=== PATIENT | female | born 2000 | race Caucasian/White ===

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

== ENCOUNTER 2024-06-01 23:42 | Emergency (ER) | payer OTHER ==
[~2024-06-01] VITALS: Ht 157.4 cm; Wt 68.0 kg
== END 2024-06-02 02:22 | disposition home or self-care (01) ==
LOC: ED 23:42
DX: S09.8XXA Other specified injuries of head, initial encounter (principal); F17.200 Nicotine dependence, unspecified, uncomplicated; K21.9 Gastro-esophageal reflux disease without esophagitis; F31.9 Bipolar disorder, unspecified; Z79.899 Other long term (current) drug therapy; Z88.2 Allergy status to sulfonamides; V49.9XXA Car occupant (driver) (passenger) injured in unspecified traffic accident, initial encounter; Y93.89 Activity, other specified; Y92.488 Other paved roadways as the place of occurrence of the external cause; Y99.8 Other external cause status

== ENCOUNTER 2025-01-02 15:42 | Emergency (ER) | payer SELFPAY ==
[~2025-01-02] VITALS: Ht 157.4 cm; Wt 90.7 kg
[2025-01-02] MEDS ORDERED: METFORMIN HYDR500 MG PO (15:49)
[2025-01-02] MEDS ORDERED: Metoclopramide Hydrochloride 10 MG/2 ML VIAL IV ONE (15:55)
[2025-01-02] MEDS ORDERED: ACETAMINOPHEN 325 MG TAB PO ONE (15:55)
[2025-01-02] MEDS ORDERED: SODIUM CHLORIDE 0.9% 1,000 ML IV ONE (15:55)
[2025-01-02] MEDS ORDERED: diphenhydrAMINE hydrochloride 50 MG/ML VIAL IV ONE (15:55)
[2025-01-02 16:28] LABS: BASO # 0.1 10*3/uL (0.0-0.1); BASO % 0.7 % (0.0-1.0); EOS # 0.2 10*3/uL (0.0-0.4); EOS % 1.8 % (1.0-4.0); MEAN CELL VOLUME 88.4 fl (81.0-99.0); MEAN CORPUSCULAR HGB 30.5 pg (27.0-31.0); MEAN PLATELET VOLUME 9.6 fl (9.6-12.3); MONO # 0.4 10*3/uL (0.1-1.0); MONO % 3.6 % (3.0-9.0); NEUT # 6.1 10*3/uL (2.3-7.9); NEUT % 58.0 % (47.0-73.0); NUCLEATED RED BLOOD CELL 0.0 % (0.0-0.0); NUCLEATED RED BLOOD CELL 0.0 10*3/uL (0.0-0.0); PLATELET COUNT AUTOMATED 315 10*3/uL (130-400); RED CELL DISTRI WIDTH 11.5 % (0-14.5)
[2025-01-02 16:57] LABS: BUN 7 mg/dl (9-23)
[2025-01-02 17:02] LABS: B-hCG (QUALITATIVE) NEGATIVE (NEGATIVE)
[2025-01-02] MEDS ORDERED: IBU800 M2 PO (17:30)
[2025-01-02] MEDS ORDERED: REGLAN10 M1 PO (17:30)
== END 2025-01-02 18:04 | disposition home or self-care (01) ==
LOC: ED 15:42
PROVIDERS: Emergency Medicine
DX: R51.9 Headache, unspecified (principal); R50.9 Fever, unspecified; R11.10 Vomiting, unspecified; Z88.2 Allergy status to sulfonamides; Z79.84 Long term (current) use of oral hypoglycemic drugs